=== PATIENT | female | born 1960 | race African-American/Black ===

== ENCOUNTER → 2016-07-12 | Outpatient (CLI) | payer OTHER ==
[~2016-07-12] VITALS: Ht 170.2 cm; Wt 59.4 kg
[~2016-07-12] MED LIST: ACCUNEB SO1.25 MG/1 INH; DOVONEX120 GM TP; FLONASE 0.05%50 MCG NASAL; FROVATRIPTAN S2.5 MG PO; NAPROSYN500 MG PO; NICORETTE4 MG BC; ONDANSETRON HCL4 M2 PO; PATANOL5 ML OPHTHALMIC; PROAIR HFA8.5 GM PO; TRAMADOL 50 MG50 MG PO; TRANSDERM-SCO1 PATC1 TD; XANAX 0.5 MG0.5 MG PO; XYZAL5 MG PO; ZOLOFT50 MG PO
--- NOTE | ~2016-07-12 | HPC ---
[facility] [address] [place] [address] PAIN MANAGEMENT CONSULTATION Name: AARON LARSEN Room #: REG NIKA Yañez.#: [id number] Admission: 07/12/16 Attend Phys: Ho Diaz DO Discharge: Date of : 60 Report #: [id number] THIS REPORT FOR: //name// CC: Ho Pillai MD DATE OF SERVICE: 07/12/2016 REFERRING PHYSICIAN: Dr. Sanjuanita Pillai. CHIEF COMPLAINT: Neck pain, left upper extremity pain and paresthesias. HISTORY OF PRESENT ILLNESS: As you know, patient is a 55-year-old female who reports a recent onset of neck pain, left upper extremity pain and paresthesia. The patient states that on 12/11/2015 she began experiencing left neck pain, left upper extremity pain. She indicates pain is steady, describes the pain as throbbing and sharp as well as numbness and tingling, places current pain score at 8/10, daily average at 8/10, worst the pain has been is 9/10. The patient states that working and using her upper extremities tend to exacerbate symptoms, medications tend to improve pain. The patient has been evaluated by her primary care physician who sent the patient for MRI imaging. Once the imaging showed changes in the cervical region, the patient was referred to our clinic, discussed treatment options for cervical radiculopathy. Today, the patient reports pain as level of 5/10 aching, throbbing, sharp, steady as the description she uses at this visit. She is in no acute distress at today's evaluation. PAST MEDICAL HISTORY: Asthma, muscle weakness, cervical radiculopathy, chronic migraine headaches, anxiety disorder. PAST SURGICAL HISTORY: Myomectomy. SOCIAL HISTORY: The patient smokes half a pack of tobacco per day. Denies IV or illicit drug use. Admits to an occasional alcoholic beverage. She is currently off work from the [employer]. She has been out of work since 05/11/2016. She is not in litigation in regards to her pain. She is in the process of discussing disability compensation. She is unaccompanied at today's visit. REVIEW OF SYSTEMS: Positive for weight gain, decrease in appetite, fever, night sweats, fatigue and weakness, frequent and recurrent headaches, shortness of breath with walking or lying flat, loss of appetite, dizziness, numbness and tingling sensations in the left upper extremity, neck pain. All other review of systems negative per 12-point review of systems other than those listed in history of present illness. [address] [address] PAIN MANAGEMENT CONSULTATION Name: AARON LARSEN [id number] Admission: 07/12/16 Attend Phys: Ho Diaz DO Discharge: Date of : 60 Report #: [id number] Pain impact score 57/70 indicating severe interference of daily activities secondary to pain. ALLERGIES: PENICILLIN and ASPIRIN. CURRENT MEDICATIONS: Albuterol 2 puffs q. 4 hours p.r.n., tramadol 50 mg every 4 hours p.r.n. for pain, Frovatriptan 2.5 mg p.r.n., alprazolam 0.5 mg p.r.n., fluticasone 2 sprays each nostril per day. IMAGING: MRI of cervical spine shows cervical disk spaces changes. There is a disk protrusion noted. There is mild central canal stenosis. PHYSICAL EXAMINATION: VITAL SIGNS: Blood pressure 153/85, pulse 73, respiratory rate 16, unlabored. The patient is 100% on room air. Height 5 feet 7 inches tall, weight 131 pounds, BMI calculated 30.5. GENERAL: Well-developed, well-nourished, well-hydrated, thin, 55-year-old female appearing her stated age, placing pain score today 5/10. HEENT: Normocephalic, atraumatic. Pupils equal, round and reactive to light. Extraocular muscles are intact. Sclerae nonicteric without injection. NEUROLOGIC: Cranial nerves 2-12 grossly intact. Speech fluent. The patient deemed a fair historian. LUNGS: Clear. No wheezing, rhonchi or rales. CARDIOVASCULAR: Regular. No appreciable gallop or rub. ABDOMEN: Soft, nontender, nondistended, normoactive bowel sounds. EXTREMITIES: Show no clubbing, no cyanosis, no edema. MUSCULOSKELETAL: Upper extremity strength appears equal and symmetrical with giveaway strength due to pain generation on the left when compared to the right. Muscle bulk and tone equal and symmetrical. Spurling's test positive left, negative right. Deep tendon reflexes equal and symmetrical biceps, brachioradialis and triceps. Cervical provocation testing including rotation and lateral flexion to the left cause intensification of pain. ASSESSMENT: 1. Cervical radiculopathy. 2. Displacement of cervical intervertebral disk with radiculopathy. 3. Chronic intractable pain. PLAN: 1. The patient has been referred to our service for evaluation for suspected cervical radiculopathy. Given the findings of physical exam, the findings in the MRI, I believe her symptoms are due to cervical radicular pain. We discussed with the patient treatment options for cervical radiculopathy. These would include physical therapy, stretching exercise, core strengthening and traction techniques. We discussed medication management, addition of a [facility] [address] [place] [address] PAIN MANAGEMENT CONSULTATION Name: LORETA LARSENMAGDY Trent Room #: REG [facility] Otilio.#: [id number] Admission: 07/12/16 Attend Phys: Ho Diaz DO Discharge: Date of : 60 Report #: [id number] neuropathic pain medication and a consistent nonsteroidal anti-inflammatory. We discussed cervical epidural injections under fluoroscopic guidance for which the patient was referred to our clinic. We also discussed surgical options. After reviewing risks and benefits of all proposed treatment options, the patient requested cervical epidural injection under fluoroscopic guidance. The patient was advised that third alliance party payer restrictions require that authorization be obtained before this patient could undergo a cervical epidural injection, authorization will take anywhere from 4-7 working days. We will begin the process immediately, contact the patient once we have this authorization to move forward with a cervical epidural injection under fluoroscopic guidance. Once we have this authorization, we will contact the patient and schedule her back for this first in a series of cervical epidural injections. 2. No medication changes were made at today's visit. The patient to continue current medical therapy as previously prescribed. 3. The patient to return to our clinic once we have achieved authorization to undergo cervical epidural injection under fluoroscopic guidance to address cervical radicular symptoms secondary to the changes in the cervical spine, affecting the left upper extremity. 4. We wish to thank Dr. Pillai for the referral of this patient to our clinic. We will keep you apprised of her response to treatment as we address her cervical radicular symptoms. Again, we wish to thank you for the opportunity to see the patient in consultation. <ELECTRONICALLY SIGNED> By: Ho Diaz DO 07/13/16 1128 [id number] Ho Diaz DO /nt
[2016-07-12 12:56] VITALS: BP 153/85
== END | disposition home or self-care (01) ==
LOC: PAIN 07:42
DX: M50.20 Other cervical disc displacement, unspecified cervical region (principal); G89.29 Other chronic pain; J45.909 Unspecified asthma, uncomplicated; G43.909 Migraine, unspecified, not intractable, without status migrainosus; F41.9 Anxiety disorder, unspecified; F17.210 Nicotine dependence, cigarettes, uncomplicated; Z98.890 Other specified postprocedural states

== ENCOUNTER → 2018-11-19 | Outpatient (CLI) | payer OTHER ==
[~2018-11-19] VITALS: Ht 167.6 cm; Wt 66.2 kg
[~2018-11-19] MED LIST changes: +ALEVE PM CAPLE1 EACH PO; +DIAZEPAM 10 MG10 M2 PO; +FLEXERIL PO; +NEURONTIN100 MG PO; +ZOLPIDEM TARTRA10 MG PO
--- NOTE | ~2018-11-19 | HPC ---
[facility] [address] [place] [address] PAIN MANAGEMENT CONSULTATION Name: AARON LARSEN Room #: REG [facility].#: [id number] Admission: 11/19/18 Attend Phys: David Marquez MD Discharge: Date of : 60 Report #: [id number] THIS REPORT FOR: //name// CC: Sanjuanita Marquez DATE OF SERVICE: 11/19/2018 CHIEF COMPLAINT: Low back pain with radiation into the leg. HISTORY OF PRESENT ILLNESS: The patient is a 58-year-old who is here today complaining of severe pain that radiates into her buttocks and then down into the outer thigh. The pain is all on the right. She describes it as a 10/10. It is exacerbated by all movements and other activities. She has found nothing to relieve the pain. She has tried to move and do some exercise, but the pain limits her. She has tried naproxen and has some diazepam, which she takes twice a day. She takes zolpidem at bedtime and has cyclobenzaprine as well 3 times a day for muscle spasm, which is not helpful. She denies side effects from the interactions with these medications. She is not on a neuropathic medication. She takes albuterol. ALLERGIES: PENICILLIN AND ASPIRIN. PQRS REVIEW: 1. No history of osteoarthritis. 2. BMI of 23.6. 3. Vital signs: Blood pressure 158/94, heart rate 104, respirations 14. 4. Pain intensity 10/10. 5. Fall risk yes, she needs help standing and walking, but has not fallen in the last 3 months. 6. No blood thinners. 7. History of hypertension. She is followed by Dr. Pillai. 8. She is on no opioids at this time. 9. Opioid risk tool was not completed today. 10. Functional assessment score of 54/70. 11. She is an every day smoker, 1/2 pack per day for the last 20 years. She continues to use alcohol. PHYSICAL EXAMINATION: VITAL SIGNS: As noted above. She is anxious and frustrated by her pain. She moves from a sitting to standing position, her gait is markedly antalgic. HEENT: Normal. Pupils are equal, round, reactive to light. EOMs are intact. Mucous membranes are moist. [address] [address] PAIN MANAGEMENT CONSULTATION Name: AARON LARSEN Room #: REG [facility].#: [id number] Admission: 11/19/18 Attend Phys: David Marquez MD Discharge: Date of : 60 Report #: [id number] NECK: Supple. There is no restriction. CHEST: Clear bilaterally. CARDIOVASCULAR: Reveals a systolic murmur at left sternal border. ABDOMEN: Soft and nontender. MUSCULOSKELETAL: Range of motion in the neck is normal. She has had a history of cervical radiculopathy and has some mild localized tenderness. Spinal alignment is normal. She has good flexion and extension, but this intensifies pain in her low back and in her leg. Straight leg raising is positive in the sitting and the supine position. She has minimal pain with internal and external rotation of the hip. There is no sacroiliac joint tenderness. Deep tendon reflexes are 2+ at the knees and 1+ at the ankles bilaterally and symmetrical. Sensation is intact. No weakness is noted. IMPRESSION: Cervical radiculopathy on the right, this follows mostly an L5-S1 distribution. RECOMMENDATION: She is a good candidate for an epidural steroid injection. We sought and received preauthorization to perform the injection today, but we were unable to do so during her office visit. She was rescheduled back in the clinic in 1 week for an injection. I have explained the procedure, risks and benefits in some detail to the patient. She would like to proceed once we have received preauthorization. By: [id number] David Marquez MD /nt
[2018-11-19 14:53] VITALS: BP 158/94
--- NOTE | 2018-11-19 15:11 | NUR ---
Pain Clinic Assessment: 1. History of Osteoarthritis: NONE History of Rheumatoid Arthritis: NONE 2. Height: 5 ft. 6 in. 167.6 cm. Weight: 146.0 lb. oz. 66.225 kg. Patient's BMI: 23.6 3. Vital Signs: BP: 158/94 Pulse: 104 Resp: 14 Temp: 02 Sat: 100 ECG Mon: 4. Pain Intensity: 10 5. Fall Risk: Dizziness: N Needs help standing or walking: Y Fallen in the last 3 months: N Fall risk comments: 6. Patient on Blood Thinner: None 7. History of Hypertension: Y 8. Opioid Therapy greater than 6 weeks: Y Opiate Contract Signed: 9. Risk Assessment Tool Provided: 10. Functional Assessment Tool: 11. Recreational Drug Use: Never Drug Type: Tobacco Use: Current Every Day Smoker Tobacco Type: Cigarettes Amount or Packs/day: 1/2 How Many Years: 20 Alcohol Use: Yes Frequency: Special Occasions Quant:
== END ==
LOC: PAIN 07:05
DX: M54.12 Radiculopathy, cervical region (principal); M54.17 Radiculopathy, lumbosacral region; M79.605 Pain in left leg

== ENCOUNTER 2019-06-03 15:00 | Emergency (ER) | payer OTHER ==
[~2019-06-03] VITALS: Ht 170.2 cm; Wt 68.0 kg
[2019-06-03 17:51] VITALS: BP 99/67
== END 2019-06-03 17:51 | disposition home or self-care (01) ==
LOC: ER 15:00
DX: S82.844A Nondisplaced bimalleolar fracture of right lower leg, initial encounter for closed fracture (principal); Z88.0 Allergy status to penicillin; Z88.2 Allergy status to sulfonamides; W10.9XXA Fall (on) (from) unspecified stairs and steps, initial encounter; Y93.89 Activity, other specified; Y92.89 Other specified places as the place of occurrence of the external cause; Y99.8 Other external cause status

== ENCOUNTER 2019-06-12 09:31 | Day surgery (SDC) | payer OTHER ==
[2019-06-12] MEDS ORDERED: PERCOCET 7.5-31 EACH PO (12:25)
--- NOTE | 2019-06-18 09:35 | O ---
[facility] [place] [address] [place] [address] OPERATIVE REPORT Name: AARON LARSEN Room #: DEP [facility]#: [id number] Admission: 06/12/19 Attend Phys: Dagoberto Wilde MD Discharge: 06/12/19 Date of : 60 Report #: [id number] THIS REPORT FOR: cc: Sanjuanita Pillai MD,Sanjuanita Wilde,Dagoberto Sullivan MD ~ CC: Sanjuanita Wilde DATE OF SERVICE: 06/12/2019 PREOPERATIVE DIAGNOSIS: Right ankle bimalleolar fracture. POSTOPERATIVE DIAGNOSIS: Right ankle bimalleolar fracture. PROCEDURE: Right ankle open reduction and internal fixation. SURGEON: Dr. Dagoberto Wilde. CERTIFIED MASSAGE THERAPIST: Lilly Shetty. ANESTHESIA: General. ESTIMATED BLOOD LOSS: Minimal. DRAINS: No drains. TOURNIQUET TIME: 30 minutes. DESCRIPTION OF PROCEDURE: The patient brought to the operating room where she was placed under general anesthesia. Once under adequate general anesthesia, her right lower extremity was prepped and draped in sterile manner. The extremity was elevated, exsanguinated, tourniquet placed 300 mmHg. A lateral incision approximately 10 cm in length over the distal fibula was made. This was dissected down through soft tissue to the fracture site. Fracture site was freed from any surrounding soft tissue and any hematoma was evacuated from the fracture site. A reduction was achieved with a bone reduction tenaculum and a 7-hole one-third tubular plate from [employer] was placed, 3 screws distal and 3 screws proximal to the fracture site. Excellent fixation was achieved. A separate incision 3-cm in length over the medial malleolus was then made. This was dissected down through the soft tissue to the medial malleolar fracture. Any hematoma was evacuated from this fracture site. A rongeur and a #15 blade was utilized to free up the bone from the surrounding soft tissues. The hematoma was evacuated. A bone reduction tenaculum was then placed across the fracture and fixation was then achieved with two 4.0 cannulated screws placed under fluoroscopic guidance. Excellent fixation and alignment was achieved as [facility] [address] [place] [address] OPERATIVE REPORT Name: AARON LARSEN NANO Room #: DEP [facility].#: [id number] Admission: 06/12/19 Attend Phys: Dagoberto Wilde MD Discharge: 06/12/19 Date of : 60 Report #: [id number] verified under fluoroscopy. The wound was irrigated copiously and closed with 2-0 Vicryl in subcutaneous tissues and ekta were used for the skin. The wound was dressed with Xeroform, 4 x 4s, and sterile soft compressive dressing was placed along with a short leg cast. Tourniquet was let down approximately 30 minutes. Toes were pink and warm with good capillary refill. There were no complications from the procedure. The patient tolerated the procedure well and was taken to recovery room without incident. <ELECTRONICALLY SIGNED> By: Dagoberto Wilde MD 06/18/19 0935 [id number] Dagoberto Wilde MD /nt
== END 2019-06-12 14:00 | disposition home or self-care (01) ==
LOC: OR 09:31 → TBA 10:15 → OR 13:00
DX: S82.841A Displaced bimalleolar fracture of right lower leg, initial encounter for closed fracture (principal); Z98.890 Other specified postprocedural states; Z79.899 Other long term (current) drug therapy; Z88.0 Allergy status to penicillin; Z88.2 Allergy status to sulfonamides; W19.XXXA Unspecified fall, initial encounter; Y93.89 Activity, other specified; Y92.89 Other specified places as the place of occurrence of the external cause; Y99.8 Other external cause status
CPT/HCPCS: 50010; 50101; 50343; 50386; 51122; 51131; 51412; 56524; 56525; 56667; 57091; 57180; 62110; 62900; 70005

== ENCOUNTER → 2019-09-06 | Outpatient (CLI) | payer OTHER ==
[~2019-09-06] MED LIST changes: +PERCOCET 7.5-31 EACH PO
== END ==
LOC: SJCVCIMAG 08-20 12:33
DX: R94.31 Abnormal electrocardiogram [ECG] [EKG] (principal); I21.29 ST elevation (STEMI) myocardial infarction involving other sites; I42.9 Cardiomyopathy, unspecified; I35.1 Nonrheumatic aortic (valve) insufficiency; I10 Essential (primary) hypertension

== ENCOUNTER → 2019-09-27 | Outpatient (CLI) | payer OTHER | LOC: SJCVCIMAG 09-13 06:59 | PROVIDERS: ATTEND Internal Medicine Cardiovascular Disease | DX: I42.9 Cardiomyopathy, unspecified (principal); E78.5 Hyperlipidemia, unspecified; I10 Essential (primary) hypertension; J45.909 Unspecified asthma, uncomplicated ==